=== PATIENT | female | born 1990 | race Caucasian/White ===

== ENCOUNTER 2017-11-17 18:37 | Emergency (ER) | payer BC, OTHER ==
[~2017-11-17] VITALS: Ht 170.2 cm; Wt 98.0 kg
[~2017-11-17 18:37] MED LIST: AZITTAB PO; DXY100 PO; PRED20TA PO
[2017-11-17 18:45] VITALS: TEMP 36.9; Ht 170.2 cm; Wt 98.0 kg
--- NOTE | 2017-11-17 20:25 | EMERGENCY ROOM VISIT NOTE ---
History Report prepared by Jose Armando: Viridiana Jarrett Under the Supervision of: Dr. Yonatan Montgomery M.D. First contact with patient: 20:18 Chief Complaint: ABDOMINAL PAIN Stated Complaint: MAJOR LOWER ABD PAIN AND BURNING FOR >1WEEK Nursing Triage Summary: pt reports " i have a severe odd stomache pain I have had this pain since last week " reports intermittent nausea History of Present Illness The patient is a 27 year old female who presents to the Emergency Room with complaints of constant right lower abdominal pain beginning a week ago. The patient describes her pain as burning. The patient states her pain worsened over the weekend. She notes nausea but denies any vomiting or diarrhea. Today, the patient reports her pain radiated to her right leg and right sided chest. The patient's last menstrual cycle ended on October 26. She reports he menstrual cycle is relatively normal. She reports she went to the OBGYN where they did a pelvic exam and everything was normal. She notes increased stress because her is in ICU. The patient denies any history of GERD. Source of History: patient Onset: a week ago Position: abdomen Quality: burning Timing: worsening Associated Symptoms: + nausea, + abdominal pain, No vomiting, No diarrhea Review of Systems See HPI for pertinent positives and negatives. A total of ten systems were reviewed and were otherwise negative. Past Medical & Surgical Medical Problems: (1) No Known Active Medical Problems Family History Patient reports no known family medical history. Social History Smoking Status: Current Some Day Smoker Marital Status: Housing Status: lives with significant other Current/Historical Medications Scheduled Ascorbic Acid (Vitamin C), 500 MG PO DAILY Echinacea (Echinacea), 1 TAB PO DAILY Scheduled PRN Rqwobiy-Zuqaouafyyioq-Blyhgnfk (Excedrin Extra Strength), 2 RUEPRTO DAILY PRN for Pain or Fever Allergies Coded Allergies: No Known Allergies (Unverified , 12/09/07) Physical Exam Vital Signs Date Time Temp Pulse Resp B/P (MAP) Pulse Ox O2 Delivery O2 Flow Rate FiO2 11/17/17 23:25 82 20 126/77 96 Room Air 11/17/17 22:24 82 20 123/78 99 Room Air 11/17/17 20:53 88 20 131/79 99 Room Air 11/17/17 18:45 36.9 91 20 125/85 99 Room Air Physical Exam GENERAL: Awake, alert, well-appearing, in no distress HENT: Normocephalic, atraumatic. Oropharynx unremarkable. EYES: Normal conjunctiva. Sclera non-icteric. NECK: Supple. No nuchal rigidity. FROM. No JVD. RESPIRATORY: Clear to auscultation. CARDIAC: Regular rate, normal rhythm. Extremities warm and well perfused. Pulses equal. ABDOMEN: Mild RLQ, RUQ, suprapubic and epigastric tenderness, no peritoneal signs. Soft, non-distended. No rebound or guarding. No masses. RECTAL: Deferred. MUSCULOSKELETAL: Chest examination reveals no tenderness. The back is symmetrical on inspection without obvious abnormality. There is no CVA tenderness to palpation. No joint edema. LOWER EXTREMITIES: Calves are equal size bilaterally and non-tender. No edema. No discoloration. NEURO: Normal sensorium. No sensory or motor deficits noted. SKIN: No rash or jaundice noted. Medical Decision & Procedures ER Provider Diagnostic Interpretation: Radiology results as stated below per my review and radiologist interpretation: CT OF THE ABDOMEN AND PELVIS WITH CONTRAST FINDINGS: Lung bases are clear. The liver, spleen, adrenal glands and pancreas are normal. There is no biliary or pancreatic ductal dilatation. There is no peripancreatic or pericholecystic infiltration. 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 There is no hydronephrosis. Both nephrograms are symmetric. The caliber and wall thickness of small and large bowel are normal. The appendix is normal. There is no evidence for a bowel obstruction. There is no adenopathy. No suspicious skeletal lesions are identified. There is no ascites. IMPRESSION: No acute process within the abdomen or pelvis. Normal appendix. Electronically signed by: Riki Rachel M.D. Laboratory Results 11/17/17 20:45 Red Blood Count 4.60, Mean Corpuscular Volume 85.9, Mean Corpuscular Hemoglobin 29.1, Mean Corpuscular Hemoglobin Concent 33.9, Mean Platelet Volume 8.8, Neutrophils (%) (Auto) 60.6, Lymphocytes (%) (Auto) 32.0, Monocytes (%) (Auto) 5.5, Eosinophils (%) (Auto) 1.3, Basophils (%) (Auto) 0.3, Neutrophils # (Auto) 7.16, Lymphocytes # (Auto) 3.77, Monocytes # (Auto) 0.65, Eosinophils # (Auto) 0.15, Basophils # (Auto) 0.03 11/17/17 20:45 Test 11/17/17 20:40 11/17/17 20:45 Urine Color YELLOW Urine Appearance CLEAR (CLEAR) Urine pH 6.5 (4.5-7.5) Urine Specific [place] 1.019 (1.000-1.030) Urine Protein NEG (NEG) Urine Glucose (UA) NEG (NEG) Urine Ketones TRACE (NEG) Urine Occult Blood NEG (NEG) Urine Nitrite NEG (NEG) Urine Bilirubin NEG (NEG) Urine Urobilinogen NEG (NEG) Urine Leukocyte Esterase NEG (NEG) Urine Test NEG (NEG) White Blood Count 11.79 K/uL (4.8-10.8) Red Blood Count 4.60 M/uL (4.2-5.4) Hemoglobin 13.4 g/dL (12.0-16.0) Hematocrit 39.5 % (37-47) Mean Corpuscular Volume 85.9 fL (80-100) Mean Corpuscular Hemoglobin 29.1 pg (25-34) Mean Corpuscular Hemoglobin Concent 33.9 g/dl (32-36) Platelet Count 299 K/uL (130-400) Mean Platelet Volume 8.8 fL (7.4-10.4) Neutrophils (%) (Auto) 60.6 % Lymphocytes (%) (Auto) 32.0 % Monocytes (%) (Auto) 5.5 % Eosinophils (%) (Auto) 1.3 % Basophils (%) (Auto) 0.3 % Neutrophils # (Auto) 7.16 K/uL (1.4-6.5) Lymphocytes # (Auto) 3.77 K/uL (1.2-3.4) Monocytes # (Auto) 0.65 K/uL (0.11-0.59) Eosinophils # (Auto) 0.15 K/uL (0-0.5) Basophils # (Auto) 0.03 K/uL (0-0.2) RDW Standard Deviation 42.0 fL (36.4-46.3) RDW Coefficient of Variation 13.5 % (11.5-14.5) Immature Granulocyte % (Auto) 0.3 % Immature Granulocyte # (Auto) 0.03 K/uL (0.00-0.02) Anion Gap 8.0 mmol/L (3-11) Est Creatinine Clear Calc Drug Dose 117.5 ml/min Estimated GFR () 105.8 Estimated GFR (Non- 91.3 BUN/Creatinine Ratio 11.8 (10-20) Calcium Level 9.0 mg/dl (8.5-10.1) Total Bilirubin 0.3 mg/dl (0.2-1) Direct Bilirubin < 0.1 mg/dl (0-0.2) Aspartate Amino Transf (AST/SGOT) 27 U/L (15-37) Alanine Aminotransferase (ALT/SGPT) 47 U/L (12-78) Alkaline Phosphatase 104 U/L (45-117) Total Protein 7.9 gm/dl (6.4-8.2) Albumin 3.8 gm/dl (3.4-5.0) Lipase 181 U/L (73-393) Laboratory results reviewed by me Medications Administered Medications (Trade) Dose Ordered Sig/Juancho Route Start Time Stop Time Status Last Admin Dose Admin Sodium Chloride 1,000 ml @ 999 mls/hr Q1H1M STAT IV 11/17/17 20:26 11/17/17 21:26 DC 11/17/17 20:54 999 MLS/HR Ondansetron HCl (Zofran Inj) 4 mg NOW STAT IV 11/17/17 20:26 11/17/17 20:32 DC 11/17/17 20:55 4 MG Acetaminophen (Tylenol Tab) 1,000 mg NOW STAT PO 11/17/17 22:51 11/17/17 22:52 DC 11/17/17 23:23 1,000 MG ED Course 2023: The patient was evaluated in room C11B. A complete history and physical exam was performed. 2246: I updated the patient on her test results. 2256: I reevaluated the patient. Discussed results and discharge instructions: She verbalized understanding and agreement. The patient is ready for discharge. Medical Decision I reviewed the patient's past medical history, medications, and the nursing notes as described above. Differential diagnosis: Etiologies such as appendicitis, diverticulitis, PUD, biliary pathology, UTI, pancreatitis, obstruction, mesenteric ischemia, aortic pathology, infections, inflammatory bowel disease, renal colic, as well as others were entertained. The patient is a 27-year-old woman who presents emergency Department with generalized abdominal pain per history of present illness. On arrival the patient is in no acute distress, afebrile stable vital signs. Abdomen is with generalized abdominal tenderness but no peritoneal signs. Labs unremarkable with marginally elevated WBC to 11. UA negative. CT abd/pelvis unremarkable with no acute findings. Given the patient was seen by her [employer] [employer] earlier today with no concerns no indication for further workup at this time. Clear etiology the patient's symptoms however unlikely to be emergent process. Given strict return instructions should she become worse. Findings and plan for follow-up reviewed with patient. Patient agreeable and d/c'd per discharge instructions. Medication Reconcilliation Current Medication List: was personally reviewed by me Blood Pressure Screening Patient's blood pressure: Normal blood pressure Impression Primary Impression: Abdominal pain Scribe Attestation The scribe's documentation has been prepared under my direction and personally reviewed by me in its entirety. I confirm that the note above accurately reflects all work, treatment, procedures, and medical decision making performed by me. Departure Information Dispostion Home / Self-Care Referrals No Doctor, Assigned (PCP) Patient Instructions ED Abdominal Pain Unkn Cause, My [facility] Additional Instructions Please follow up with your primary care physician in the next 1-3 days for re- evaluation. The cause of your symptoms is unclear at this time. Otherwise, your exam, CT scan, and lab results did not show signs of an emergent condition at this time. Ensure hydration. Return to the emergency department for worsening symptoms as described in the accompanying instructions.
[2017-11-17] MEDS ORDERED: SODIUM CHLORIDE 0.9% 1000ML 1,000 ML IV STA (20:26)
[2017-11-17] MEDS ORDERED: ONDANSETRON INJ 2 MG/ML 2 ML VIAL IV STA (20:26)
[2017-11-17] MEDS ORDERED: OPTIRAY 320 IV PRN (20:45)
[2017-11-17] MEDS ORDERED: ECHI125C PO (20:47)
[2017-11-17] MEDS ORDERED: ASPI-391 (20:47)
[2017-11-17] MEDS ORDERED: ASCO1CAP3 PO (20:47)
[2017-11-17 21:10] LABS: BASO % 0.3 %; BASO ABS # 0.03 K/uL (0-0.2); EOS % 1.3 %; EOS ABS # 0.15 K/uL (0-0.5); HEMATOCRIT 39.5 % (37-47); HEMOGLOBIN 13.4 g/dL (12.0-16.0); IG# 0.03 K/uL (0.00-0.02); LYMPH ABS # 3.77 K/uL (1.2-3.4); MEAN CELL VOLUME 85.9 fL (80-100); MEAN CORPUSCULAR HEMOGLOBIN 29.1 pg (25-34); MEAN CORPUSCULAR HGB CONC 33.9 g/dl (32-36); MEAN PLATELET VOLUME 8.8 fL (7.4-10.4); MONO % 5.5 %; MONO ABS # 0.65 K/uL (0.11-0.59); NEUT % 60.6 %; NEUT ABS # 7.16 K/uL (1.4-6.5); PLATELET COUNT 299 K/uL (130-400); RED CELL DISTRIBUTION WIDTH CV 13.5 % (11.5-14.5); WHITE BLOOD COUNT 11.79 K/uL (4.8-10.8)
[2017-11-17 21:44] LABS: ALBUMIN 3.8 gm/dl (3.4-5.0); ALT/SGPT 47 U/L (12-78); CREATININE 0.88 mg/dl (0.60-1.20)
[2017-11-17 21:45] LABS: ALKALINE PHOSPHATASE 104 U/L (45-117); AST/SGOT 27 U/L (15-37); BLOOD UREA NITROGEN 10 mg/dl (7-18); CARBON DIOXIDE 27 mmol/L (21-32); GLUCOSE 95 mg/dl (70-99); LIPASE 181 U/L (73-393); POTASSIUM 3.9 mmol/L (3.5-5.1); SODIUM 138 mmol/L (136-145); TOTAL PROTEIN 7.9 gm/dl (6.4-8.2)
--- NOTE | 2017-11-17 22:21 | DIAGNOSTIC IMAGING REPORT ---
CT OF THE ABDOMEN AND PELVIS WITH CONTRAST CLINICAL HISTORY: Right lower quadrant abdominal pain. COMPARISON STUDY: None. TECHNIQUE: Following IV administration of 115 mL of Optiray-320, axial images of the abdomen and pelvis were obtained from the lung bases to the proximal femurs. Images were reviewed in the axial, sagittal, and coronal planes. IV contrast was administered without complication. A dose lowering technique was utilized adhering to the principles of ALARA. CT DOSE: 644.01 mGy.cm FINDINGS: Lung bases are clear. The liver, spleen, adrenal glands and pancreas are normal. There is no biliary or pancreatic ductal dilatation. There is no peripancreatic or pericholecystic infiltration. 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 There is no hydronephrosis. Both nephrograms are symmetric. The caliber and wall thickness of small and large bowel are normal. The appendix is normal. There is no evidence for a bowel obstruction. There is no adenopathy. No suspicious skeletal lesions are identified. There is no ascites. IMPRESSION: No acute process within the abdomen or pelvis. Normal appendix. Electronically signed by: Riki Rachel M.D. 11/17/2017 10:20 PM Dictated Date/Time: 11/17/2017 10:15 PM
[2017-11-17] MEDS ORDERED: ACETAMINOPHEN 500 MG TAB PO STA (22:51)
[2017-11-17 23:25] VITALS: BP 126/77; PULSE 82; O2SAT 96
== END 2017-11-17 23:30 | disposition home or self-care (01) ==
LOC: C.EDB 18:39 → C.EDC 23:30
DX: R10.31 Right lower quadrant pain (principal); F17.200 Nicotine dependence, unspecified, uncomplicated